=== PATIENT | male | born 1980 | race Hispanic/Latino ===

== ENCOUNTER 2019-12-31 09:55 | Emergency (ER) | payer SELFPAY ==
[2019-12-31 10:39] LABS: Absolute Lymphocytes (CBC) 1.5 K/uL (0.7-4.9); Basophils % 0.4 % (0-1.3); Hematocrit 46.8 % (39.6-49.0); Lymphocytes % 17.5 % (15.3-44.8); MPV 8.4 fL (7.6-11.3)
[2019-12-31] MEDS ORDERED: LORazepam 2 MG/ML VIAL ONE (10:39)
[2019-12-31] MEDS ORDERED: ASPIRIN 81 MG CHEWABLE TABLET ONE (10:39)
[2019-12-31 10:40] LABS: Protime INR 1.03
[2019-12-31 10:57] LABS: ALT/SGPT 20 U/L (12-78); AST/SGOT 25 U/L (15-37); Albumin 4.1 g/dL (3.4-5.0); Alkaline Phosphatase 62 U/L (45-117); BUN Blood Urea Nitrogen 11 mg/dL (7-18); Bicarbonate 25 mmol/L (21-32); Bilirubin Direct 0.1 mg/dL (0-0.2); Bilirubin Total 0.7 mg/dL (0.2-1.0); Glucose Level 125 mg/dL (74-106); Magnesium 2.1 mg/dL (1.8-2.4); NT PRO-BNP 121 pg/mL (<125); Potassium 3.2 mmol/L (3.5-5.1); Protein, Total 7.6 g/dL (6.4-8.2); Sodium Level 139 mmol/L (136-145); Troponin (Emerg Dept Use Only) < 0.02 ng/mL (0.0-0.045)
--- NOTE | 2019-12-31 13:02 | RAD REPORT ---
EXAM DESCRIPTION: RAD - Chest Single View - 12/31/2019 10:35 am CLINICAL HISTORY: CHEST PAIN Chest pain. COMPARISON: Chest Single View dated 01/14/2017; CHEST SINGLE VIEW dated 12/14/2014; CHEST SINGLE VIEW dated 11/30/2014; CHEST SINGLE VIEW dated 04/24/2014 FINDINGS: Portable technique limits examination quality. The lungs are grossly clear. The heart is normal in size. No displaced fractures. IMPRESSION: No acute intrathoracic process suspected.
--- NOTE | 2019-12-31 14:07 | EDPHYS ---
Physician Documentation [facility] Name: Evaristo Altman Age: 39 yrs Sex: Male : 1980 Arrival Date: 12/31/2019 Time: 09:57 Bed 2 Private MD: ED Physician Nicolas Bowman HPI: 12/30 10:27 This 39 yrs old Male presents to ER via Ambulatory with complaints of Drug la1 Abuse. 10:27 This 39 yrs old Male presents to ER via Ambulatory with complaints of chest la1 pain. 10:27 The patient or guardian reports chest pain that is located primarily in the substernal la1 area. The pain does not radiate. Associated signs and symptoms: Pertinent positives: lightheadedness. The chest pain is described as throbbing. Duration: The patient or guardian reports a single episode, that is still ongoing, and unchanged. Modifying factors: The symptoms are alleviated by deep breath. the symptoms are aggravated by nothing. Severity of pain: At its worst the pain was moderate. The patient has experienced a previous episode, many years ago. pt reports he has been clean for four years but last night took meth and oxycodone at about 1800, began having chest pain at about 0900 this morning. States he has had pain like this in the past when he did meth and his BP was high. . Historical: - Allergies: 10:16 No Known Allergies; aa5 - PMHx: 10:16 Depression; Hypertension; PTSD; aa5 - PSHx: 10:16 None; aa5 - Social history:: Smoking status: Patient reports the use of cigarette tobacco products, 4-5 cigarettes day . ROS: 10:40 Constitutional: Negative for fever, chills, and weight loss, Eyes: Negative for injury, la1 pain, redness, and discharge, ENT: Negative for injury, pain, and discharge, Neck: Negative for injury, pain, and swelling. 10:40 Respiratory: Negative for shortness of breath, cough, wheezing, and pleuritic chest pain, Abdomen/GI: Negative for abdominal pain, nausea, vomiting, diarrhea, and constipation, Back: Negative for injury and pain, MS/Extremity: Negative for injury and deformity, Skin: Negative for injury, rash, and discoloration, Neuro: Negative for headache, weakness, numbness, tingling, and seizure. 10:40 Cardiovascular: Positive for chest pain. Exam: 10:40 Constitutional: This is a well developed, well nourished patient who is awake, alert, la1 and in no acute distress. Head/Face: Normocephalic, atraumatic. Neck: Trachea midline, Supple, full range of motion without nuchal rigidity, or vertebral point tenderness. No Meningismus. Chest/axilla: Normal chest wall appearance and motion. Nontender with no deformity. No lesions are appreciated. Cardiovascular: Regular rate and rhythm with a normal S1 and S2. No gallops, murmurs, or rubs. Normal PMI, no JVD. No pulse deficits. Respiratory: Lungs have equal breath sounds bilaterally, clear to auscultation Abdomen/GI: Soft, non-tender, with normal bowel sounds. No distension No guarding or rebound. No evidence of tenderness throughout. Back: No spinal tenderness. No costovertebral tenderness. Full range of motion. Skin: Warm, dry with normal turgor. Normal color with no rashes, no lesions, and no evidence of cellulitis. MS/ Extremity: Pulses equal, no cyanosis. Neurovascular intact. Full, normal range of motion. 10:50 ECG was reviewed by the Attending Physician. la1 Vital Signs: 10:06 BP 143 / 111; Pulse 101; Resp 18 S; Temp 98.0(O); Pulse Ox 99% on R/A; Weight 104.33 kg aa5 (R); Height 5 ft. 8 in. (172.72 cm) (R); Pain 5/10; 10:36 BP 143 / 94; Pulse 104; Resp 18; Pulse Ox 100% on R/A; Pain 5/10; em 11:04 BP 137 / 85; Pulse 87; Resp 18; Pulse Ox 99% on R/A; Pain 4/10; em 12:29 BP 142 / 98; Pulse 101; Resp 16; Pulse Ox 96% on R/A; em 13:31 BP 134 / 88; Pulse 95; Resp 18; Pulse Ox 99% on R/A; Pain 3/10; em 10:06 Body Mass Index 34.97 (104.33 kg, 172.72 cm) aa5 MDM: 10:19 Patient medically screened. la1 14:03 Differential diagnosis: abnormal EKG, acute myocardial infarction, anxiety, chest wall la1 pain, costochondritis, esophagitis, pleurisy, pneumonia, pulmonary embolus, thoracic aortic disection, unstable angina. HEART Score: History: Slightly Suspicious (0), ECG: Non specific repolarization disturbance / LBTB / PM (1), Age: < or = 45 years (0), Risk Factors: 1 or 2 risk factors (1), Troponin: < or = 1 x Normal Limit (0), Total Score = 2. Data reviewed: vital signs, nurses notes, lab test result(s), EKG, radiologic studies, I have discussed the patient's presentation/case with the attending Emergency Department Physician; and as a result, I will discharge patient. Data interpreted: Pulse oximetry: on room air is 99 %. Interpretation: normal. Test interpretation: by ED physician or midlevel provider: ECG, plain radiologic studies. Counseling: I had a detailed discussion with the patient and/or guardian regarding: the historical points, exam findings, and any diagnostic results supporting the discharge/admit diagnosis, the presence of at least one elevated blood pressure reading (>120/80) during this emergency department visit, lab results, the need for outpatient follow up, a family practitioner, to return to the emergency department if symptoms worsen or persist or if there are any questions or concerns that arise at home, smoking cessation. Special discussion: Based on the patient's history, exam, and Dx evaluation, there is no indication for emergent intervention or inpatient Tx. It is understood by the patient/guardian that if the Sx's persist or worsen they need to return immediately for re-evaluation. Based on the history and exam findings, there is no indication for further emergent testing or inpatient evaluation. I discussed with the patient/guardian the need to see the director of special services for further evaluation of the symptoms. I discussed with the patient/guardian the need to see the primary care provider for further evaluation of the symptoms. ED course: pt feeling much better after the ativan, BP back down, I do not believe this is ACS. Will have pt FU with cardiology and PCP, strict return precautions given. 12/30 10:19 Order name: Basic Metabolic Panel; Complete Time: 10:59 la1 12/30 10:19 Order name: CBC with Diff; Complete Time: 10:46 la1 12/30 10:19 Order name: LFT's; Complete Time: 10:59 la1 08 10:19 Order name: Magnesium; Complete Time: 10:59 12/30 10:19 Order name: NT PRO-BNP; Complete Time: :59 12/30 10:19 Order name: PT-INR; Complete Time: :59 12/30 10:19 Order name: Troponin (emerg Dept Use Only); Complete Time: :59 12/30 10:19 Order name: XRAY Chest (1 view); Complete Time: 13:05 12/30 10:19 Order name: EKG; Complete Time: 10:21 12/30 10:19 Order name: Cardiac monitoring; Complete Time: 10:24 12/30 10:19 Order name: EKG - Nurse/Tech; Complete Time: 10:24 12/30 13:12 Order name: Troponin (emerg Dept Use Only); Complete Time: 13:54 em 12/30 10:19 Order name: IV Saline Lock; Complete Time: 10:24 12/30 10:19 Order name: Labs collected and sent; Complete Time: 10:24 12/30 10:19 Order name: O2 Per Protocol; Complete Time: 10:24 12/30 10:19 Order name: O2 Sat Monitoring; Complete Time: 10:24 12/30 12:30 Order name: Misc. Order: repeat trop and ekg at 1330 pls; Complete Time: 13:30 12/30 13:12 Order name: EKG - Nurse/Tech; Complete Time: 13:30 em EC:50 Rate is 102 beats/min. Rhythm is regular, Sinus tachycardia. Left axis deviation noted. la1 QRS is negative in lead aVF. RI interval is normal at 144 msec. QRS interval is normal at 86 msec. QT interval is prolonged at 466 msec. No Q waves. T waves are Inverted in lead aVR. No ST changes noted. Clinical impression: Sinus tachycardia. Interpreted by me. Reviewed by me. Administered Medications: 10:36 Drug: Ativan 1 mg Route: IVP; Site: right antecubital; em 11:05 Follow up: Response: No adverse reaction; Marked relief of symptoms em 10:36 Drug: Aspirin Chewable Tablet 324 mg Route: PO; em 11:05 Follow up: Response: No adverse reaction em Disposition: 16:20 Co-signature as Attending Physician, Nicolas Bowman MD. rn Disposition: 12/31/19 14:06 Discharged to Home. Impression: Chest pain, unspecified, Adverse effect of amphetamines. - Condition is Stable. - Discharge Instructions: Nonspecific Chest Pain, Aspirin and Your Heart. - Medication Reconciliation Form, Thank You Letter form. - Follow up: Private Physician; When: 2 - 3 days; Reason: Recheck today's complaints, Re-evaluation by your physician. - Problem is new. - Symptoms have improved. Signatures: Dispatcher [employer] EDME Hua Marie, RN RN Nicloas Springer MD MD rn Calderon, Audri RN RN aa5 Wilfrid Das, KHADIJAH-C PRINCIPAL SYSTEMS ARCHITECT-Cla1 Corrections: (The following items were deleted from the chart) 14:55 14:06 12/31/2019 14:06 Discharged to Home. Impression: Chest pain, unspecified; Adverse em effect of amphetamines. Condition is Stable. Forms are Medication Reconciliation Form, Thank You Letter, Antibiotic Education, Prescription Opioid Use. Follow up: Private Physician; When: 2 - 3 days; Reason: Recheck today's complaints, Re-evaluation by your physician. Problem is new. Symptoms have improved. la1
--- NOTE | 2019-12-31 14:07 | ER ---
Nurse's Notes [facility] Name: Evaristo Altman Age: 39 yrs Sex: Male : 1980 Arrival Date: 12/31/2019 Time: 09:57 Bed 2 Private MD: Diagnosis: Chest pain, unspecified;Adverse effect of amphetamines Presentation: 12/30 10:06 Chief complaint: Patient states: "I am a drug addict and I've been clean for 4 years aa5 but last night I relapsed and did meth and oxycodone". Pt states "I also drank some last night". Pt reports chest pain that began today and reports SOB. Denies nausea/vomiting. 10:06 Acuity: SHA 3 aa5 10:06 Coronavirus screen: The patient has NOT traveled to a country currently being monitored aa5 by the [facility] within the last 14 days. Ebola Screen: Patient negative for fever greater than or equal to 101.5 degrees Fahrenheit, and additional compatible Ebola Virus Disease symptoms. 10:06 Method Of Arrival: Ambulatory aa5 10:06 Initial Sepsis Screen: Does the patient meet any 2 criteria? HR > 90 bpm. Does the aa5 patient have a suspected source of infection? No. Patient's initial sepsis screen is negative. Risk Assessment: Do you want to hurt yourself or someone else? Patient reports no desire to harm self or others. Historical: - Allergies: 10:16 No Known Allergies; aa5 - PMHx: 10:16 Depression; Hypertension; PTSD; aa5 - PSHx: 10:16 None; aa5 - Social history:: Smoking status: Patient reports the use of cigarette tobacco products, 4-5 cigarettes day . Screenin:15 Abuse screen: Denies threats or abuse. Nutritional screening: No deficits noted. em Tuberculosis screening: No symptoms or risk factors identified. Fall Risk None identified. Assessment: 10:15 General: Appears in no apparent distress. uncomfortable, Behavior is calm, cooperative. em Pain: Complains of pain in anterior aspect of left upper chest Pain does not radiate. Pain currently is 5 out of 10 on a pain scale. Quality of pain is described as pressure, Pain began 2 hours ago. Neuro: Level of Consciousness is awake, alert, obeys commands, Oriented to person, place, time, situation, Appropriate for age. Cardiovascular: Reports chest pain, shortness of breath, Denies nausea, vomiting, Heart tones S1 S2 present Capillary refill < 3 seconds Patient's skin is warm and dry. Rhythm is sinus tachycardia. Respiratory: Airway is patent Respiratory effort is even, unlabored, Respiratory pattern is regular, symmetrical. GI: Abdomen is flat, Bowel sounds present X 4 quads. Abd is soft and non tender X 4 quads. Derm: Skin is intact, is healthy with good turgor, Skin is pink, warm \\T\\ dry. Musculoskeletal: Capillary refill < 3 seconds, Range of motion: intact in all extremities. 11:07 Reassessment: Patient appears in no apparent distress at this time. Patient and/or em family updated on plan of care and expected duration. Pain level reassessed. Patient is alert, oriented x 3, equal unlabored respirations, skin warm/dry/pink. rates pain 4/10 Patient states feeling better. Patient states symptoms have improved. 12:30 Reassessment: Patient appears in no apparent distress at this time. Patient and/or em family updated on plan of care and expected duration. Pain level reassessed. Patient is alert, oriented x 3, equal unlabored respirations, skin warm/dry/pink. pending to repeat EKG and cardiac enzymes at 1330. 13:31 Reassessment: Patient appears in no apparent distress at this time. Patient and/or em family updated on plan of care and expected duration. Pain level reassessed. Patient is alert, oriented x 3, equal unlabored respirations, skin warm/dry/pink. sent repeat trop. Vital Signs: 10:06 BP 143 / 111; Pulse 101; Resp 18 S; Temp 98.0(O); Pulse Ox 99% on R/A; Weight 104.33 kg aa5 (R); Height 5 ft. 8 in. (172.72 cm) (R); Pain 5/10; 10:36 BP 143 / 94; Pulse 104; Resp 18; Pulse Ox 100% on R/A; Pain 5/10; em 11:04 BP 137 / 85; Pulse 87; Resp 18; Pulse Ox 99% on R/A; Pain 4/10; em 12:29 BP 142 / 98; Pulse 101; Resp 16; Pulse Ox 96% on R/A; em 13:31 BP 134 / 88; Pulse 95; Resp 18; Pulse Ox 99% on R/A; Pain 3/10; em 10:06 Body Mass Index 34.97 (104.33 kg, 172.72 cm) aa5 ED Course: 09:57 Patient arrived in ED. ag5 09:57 Arm band placed on. aa5 10:06 Wilfrid Das [facility]C [facility] la1 10:06 Nicolas Bowman MD is Attending Physician. la1 10:09 EKG done, by ED staff, reviewed by Wilfrid CELESTIN. em 10:10 Hua Marie, RN is Primary Nurse. em 10:15 Triage completed. aa5 10:15 Patient has correct armband on for positive identification. Bed in low position. Call em light in reach. Adult w/ patient. security monitor on. Pulse ox on. NIBP on. 10:23 Initial lab(s) drawn, by me, sent to lab. Inserted saline lock: 20 gauge in right em antecubital area, using aseptic technique. Blood collected. 10:32 XRAY Chest (1 view) In Process Unspecified. EDMS 14:45 No provider procedures requiring assistance completed. IV discontinued, intact, em bleeding controlled, No redness/swelling at site. Pressure dressing applied. Administered Medications: 10:36 Drug: Ativan 1 mg Route: IVP; Site: right antecubital; em 11:05 Follow up: Response: No adverse reaction; Marked relief of symptoms em 10:36 Drug: Aspirin Chewable Tablet 324 mg Route: PO; em 11:05 Follow up: Response: No adverse reaction em Outcome: 14:06 Discharge ordered by . [facility] 14:54 Discharged to home ambulatory. em 14:54 Condition: good 14:54 Discharge instructions given to patient, Instructed on discharge instructions, follow up and referral plans. Demonstrated understanding of instructions, follow-up care. 14:55 Patient left the ED. em Signatures: Dispatcher [employer] EDMO Hua Marie, LUANA CRAFT em Radha Ayoub RN RN aa5 Wilfrid Das FNP-C FNP-[facility] AnuelVeronica ag5
[2019-12-31 15:00] VITALS: TEMP 98
[2019-12-31 15:06] VITALS: BP 134/88; O2SAT 99
--- NOTE | 2020-01-01 07:30 | EKG ---
Test Date: 2019-12-31 Test Time: 09:19:15 Dry Mop Maker: PARESH MEASUREMENT RESULTS: Intervals: Rate: 102 VA: 144 QRSD: 86 QT: 358 QTc: 466 [place]: P: 49 VA: 144 QRS: -30 T: 51 INTERPRETIVE STATEMENTS: Sinus tachycardia Left axis deviation Abnormal ECG Compared to ECG 01/14/2017 21:12:22 Left-axis deviation now present Sinus rhythm no longer present Electronically Signed On 01-01-20 07:30:04 CDT by Yamil Weeks
--- NOTE | 2020-01-02 08:55 | EKG ---
Test Date: 2019-12-31 Test Time: 12:29:11 Search Advertising Strategist: PARESH MEASUREMENT RESULTS: Intervals: Rate: 95 MA: 148 QRSD: 92 QT: 362 QTc: 454 [place]: P: 47 MA: 148 QRS: -30 T: 49 INTERPRETIVE STATEMENTS: Normal sinus rhythm Left axis deviation Abnormal ECG Compared to ECG 12/31/2019 09:19:15 Sinus tachycardia no longer present Electronically Signed On 01-02-20 08:53:14 CDT by Max Hough
== END 2019-12-31 14:55 | disposition home or self-care (01) ==
LOC: ER 09:55
DX: R07.9 Chest pain, unspecified (principal); T43.625A Adverse effect of amphetamines, initial encounter; I10 Essential (primary) hypertension; F17.210 Nicotine dependence, cigarettes, uncomplicated
CPT/HCPCS: 36415; 71045; 80048; 80076; 83735; 83880; 84484; 85025; 85610; 93005; 96374; 99284

== ENCOUNTER 2020-04-30 13:56 | Emergency (ER) | payer SELFPAY ==
[2020-04-30 14:59] LABS: Absolute Lymphocytes (CBC) 1.5 K/uL (0.7-4.9); Basophils % 0.2 % (0-1.3); Hematocrit 42.1 % (39.6-49.0); Lymphocytes % 7.8 % (15.3-44.8); MPV 8.6 fL (7.6-11.3); RBC Red Blood Cell Count 4.34 M/uL (4.33-5.43)
[2020-04-30 15:21] LABS: ALT/SGPT 16 U/L (12-78); AST/SGOT 17 U/L (15-37); Albumin 4.3 g/dL (3.4-5.0); Alkaline Phosphatase 50 U/L (45-117); BUN Blood Urea Nitrogen 10 mg/dL (7-18); Bicarbonate 26 mmol/L (21-32); Bilirubin Direct 0.2 mg/dL (0-0.2); Bilirubin Total 0.7 mg/dL (0.2-1.0); Glucose Level 106 mg/dL (74-106); Magnesium 1.6 mg/dL (1.8-2.4); NT PRO-BNP 103 pg/mL (<125); Potassium 3.4 mmol/L (3.5-5.1); Sodium Level 141 mmol/L (136-145); Troponin (Emerg Dept Use Only) < 0.02 ng/mL (0.0-0.045)
[2020-04-30 15:22] LABS: Protime INR 1.03
[2020-04-30] MEDS ORDERED: NA CHLORIDE 0.9% 1,000 ML ONE (15:43)
[2020-04-30 16:24] LABS: Urine Bacteria <20 /HPF (NONE SEEN); Urine Culture Reflex Order NOT NEEDED; Urine RBC <5 /HPF (NONE SEEN)
[2020-04-30] MEDS ORDERED: POTASSIUM CL SA 10 MEQ TAB PO ONE (16:57)
[2020-04-30] MEDS ORDERED: Ringers Lactate 1,000 ML IV ONE (16:57)
[2020-04-30] MEDS ORDERED: Magnesium Sulfate 2gm IVPB 2 G/50 ML BAG IV ONE (16:57)
--- NOTE | 2020-04-30 18:14 | EDPHYS ---
Physician Documentation [facility] Name: Evaristo Altman Age: 39 yrs Sex: Male : 1980 Arrival Date: 04/30/2020 Time: 14:02 Bed 18 Private MD: ED Physician Chaz Baxter HPI: 04/30 15:48 This 39 yrs old Male presents to ER via EMS with complaints of Dehydration. jr8 15:48 Patient stated that he had been outside working all day. Stated to sweat profusely but jr8 then stopped sweating. Stated that he became dizzy and had near syncopal episode. EMS called at that time. Also stated that he was having hand cramping . Onset: The symptoms/episode began/occurred acutely, today. Severity of symptoms: At their worst the symptoms were moderate in the emergency department the symptoms are unchanged. The patient has not experienced similar symptoms in the past. The patient has not recently seen a physician. Historical: - Allergies: 14:03 No Known Allergies; rb1 - Home Meds: 14:03 None [Active]; rb1 - PMHx: 14:03 Depression; Hypertension; PTSD; rb1 - PSHx: 14:03 None; rb1 - Social history:: Smoking status: Patient/guardian denies using. ROS: 15:48 Eyes: Negative for injury, pain, redness, and discharge, ENT: Negative for injury, jr8 pain, and discharge, Neck: Negative for injury, pain, and swelling, Cardiovascular: Negative for chest pain, palpitations, and edema, Respiratory: Negative for shortness of breath, cough, wheezing, and pleuritic chest pain, Abdomen/GI: Negative for abdominal pain, nausea, vomiting, diarrhea, and constipation, MS/Extremity: Negative for injury and deformity, Skin: Negative for injury, rash, and discoloration. 15:48 Back: Positive for flank pain, on the left. 15:48 Neuro: Positive for dizziness, near syncope. Exam: 15:48 Eyes: Pupils equal round and reactive to light, extra-ocular motions intact. Lids and jr8 lashes normal. Conjunctiva and sclera are non-icteric and not injected. Cornea within normal limits. Periorbital areas with no swelling, redness, or edema. ENT: Nares patent. No nasal discharge, no septal abnormalities noted. Tympanic membranes are normal and external auditory canals are clear. Oropharynx with no redness, swelling, or masses, exudates, or evidence of obstruction, uvula midline. Mucous membranes moist. Neck: Trachea midline, no thyromegaly or masses palpated, and no cervical lymphadenopathy. Supple, full range of motion without nuchal rigidity, or vertebral point tenderness. No Meningismus. Respiratory: Lungs have equal breath sounds bilaterally, clear to auscultation and percussion. No rales, rhonchi or wheezes noted. No increased work of breathing, no retractions or nasal flaring. Abdomen/GI: Soft, non-tender, with normal bowel sounds. No distension or tympany. No guarding or rebound. No evidence of tenderness throughout. Skin: Warm, dry with normal turgor. Normal color with no rashes, no lesions, and no evidence of cellulitis. MS/ Extremity: Pulses equal, no cyanosis. Neurovascular intact. Full, normal range of motion. Neuro: Awake and alert, GCS 15, oriented to person, place, time, and situation. Cranial nerves II-XII grossly intact. Motor strength 5/5 in all extremities. Sensory grossly intact. Cerebellar exam normal. Normal gait. 15:48 Cardiovascular: Rate: tachycardic, Rhythm: regular, Pulses: Pulses are 2+ in right radial artery and left radial artery. Heart sounds: normal, normal S1and S2, no S3 or S4, no murmur, no rub, no gallop, Edema: is not appreciated, JVD: is not appreciated. 15:48 Back: pain, that is mild, of the left flank, ROM is normal, normal spinal alignment noted, CVA tenderness, that is mild, is noted on the left. Vital Signs: 14:03 BP 136 / 90; Pulse 112; Resp 13; Pulse Ox 99% ; Weight 104.33 kg; Height 5 ft. 9 in. rb1 (175.26 cm); Pain 5/10; 15:00 BP 122 / 67; Pulse 101; Resp 13; Pulse Ox 100% on R/A; rb1 16:00 BP 154 / 92; Pulse 96; Resp 16; Pulse Ox 100% on R/A; rb1 16:59 BP 131 / 77; Pulse 92; Resp 17; Pulse Ox 99% ; rb1 18:00 BP 135 / 87; Pulse 90; Resp 18; Pulse Ox 99% on R/A; rb1 18:50 BP 133 / 79; Pulse 96; Resp 17; Pulse Ox 99% on R/A; rb1 14:03 Body Mass Index 33.96 (104.33 kg, 175.26 cm) rb1 MDM: 15:08 Patient medically screened. rust 18:12 Data reviewed: vital signs, nurses notes, lab test result(s), EKG, and as a result, I 8 will discharge patient. Data interpreted: Pulse oximetry: on room air is 99 %. Interpretation: normal. Counseling: I had a detailed discussion with the patient and/or guardian regarding: the historical points, exam findings, and any diagnostic results supporting the discharge/admit diagnosis, lab results, the need for outpatient follow up, a family practitioner, to return to the emergency department if symptoms worsen or persist or if there are any questions or concerns that arise at home. Response to treatment: the patient's symptoms have markedly improved after treatment, patient is well hydrated. 04/30 14:36 Order name: Basic Metabolic Panel; Complete Time: 15:52 [facility] 04/30 14:36 Order name: CBC with Diff; Complete Time: 15:09 [facility] 04/30 14:36 Order name: LFT's; Complete Time: 15:52 [facility] 04/30 14:36 Order name: Magnesium; Complete Time: 15:52 [facility] 04/30 14:36 Order name: NT PRO-BNP; Complete Time: 15:52 [facility] 04/30 14:36 Order name: PT-INR; Complete Time: 15:52 [facility] 04/30 14:36 Order name: Troponin (emerg Dept Use Only); Complete Time: 15:52 [facility] 04/30 14:36 Order name: XRAY Chest (1 view) [facility] 04/30 15:09 Order name: CK; Complete Time: 16:13 rust 04/30 15:54 Order name: CT Stone Protocol rust 04/30 15:55 Order name: Urine Microscopic Only; Complete Time: 16:28 rust 04/30 16:18 Order name: Urine Dipstick--Ancillary (enter results) [facility] 04/30 14:36 Order name: EKG; Complete Time: 14:38 [facility] 04/30 14:36 Order name: Cardiac monitoring; Complete Time: 14:36 [facility] 04/30 14:36 Order name: EKG - Nurse/Tech; Complete Time: 17:46 [facility] 04/30 14:36 Order name: IV Saline Lock; Complete Time: 14:36 [facility] 04/30 14:36 Order name: Labs collected and sent; Complete Time: 14:36 [facility] 04/30 14:36 Order name: O2 Per Protocol; Complete Time: 14:36 [facility] 04/30 14:36 Order name: O2 Sat Monitoring; Complete Time: 14:36 [facility] 04/30 15:55 Order name: Urine Dipstick-Ancillary (obtain specimen); Complete Time: 16:14 jr8 Administered Medications: 15:40 Drug: NS 0.9% 1000 ml Route: IV; Rate: 1000 ml; Site: left antecubital; rb1 16:55 Follow up: IV Status: Completed infusion rb1 16:55 Drug: Magnesium Sulfate 2 grams Route: IVPB; Infused Over: 2 hrs; Site: left rb1 antecubital; 16:55 Drug: Potassium Chloride 20 mEq Route: PO; rb1 17:45 Follow up: Response: No adverse reaction rb1 16:55 Drug: Ringers - Lactated Ringers Solution 1000 ml Route: IV; Rate: bolus; Site: left rb1 antecubital; 18:13 Follow up: IV Status: Completed infusion rb1 Disposition: 04/30/20 18:14 Discharged to Home. Impression: Dehydration, Heat exhaustion, unspecified. - Condition is Stable. - Discharge Instructions: Dehydration, Adult, Heat Exhaustion Information. - Medication Reconciliation Form, Thank You Letter, Antibiotic Education, Prescription Opioid Use form. - Follow up: Private Physician; When: 2 - 3 days; Reason: Recheck today's complaints, Continuance of care, Re-evaluation by your physician. - Problem is new. - Symptoms have improved. Signatures: Dispatcher [employer] EDMS Neville Garber PA PA jr8 Stefanie Jang, RN RN rb1 Radu Gonzalez, RN RN rv Asia Perla RN RN ls4 Corrections: (The following items were deleted from the chart) 19:06 18:14 04/30/2020 18:14 Discharged to Home. Impression: Dehydration; Heat exhaustion, rv unspecified. Condition is Stable. Forms are Medication Reconciliation Form, Thank You Letter, Antibiotic Education, Prescription Opioid Use. Follow up: Private Physician; When: 2 - 3 days; Reason: Recheck today's complaints, Continuance of care, Re-evaluation by your physician. Problem is new. Symptoms have improved. jr8
--- NOTE | 2020-04-30 18:14 | ER ---
Nurse's Notes [facility] Name: Evaristo Altman Age: 39 yrs Sex: Male : 1980 Arrival Date: 04/30/2020 Time: 14:02 Bed 18 Private MD: Diagnosis: Dehydration;Heat exhaustion, unspecified Presentation: 04/30 14:03 Chief complaint: EMS states: PT. 30 yr old male, A \T\ O x 4, was working outside and rb1 started sweating profusely and then stopped sweating around 1330. C/o left kidney pain 5/10, pain with urination x 1 week. A febrile, HR 130's-140's, BS 153, BP 147/80. 18 G L AC, NS 1000 ml bolus infusing, administered by EMS. Coronavirus screen: Proceed with normal triage. Ebola Screen: Patient denies exposure to infectious person. Initial Sepsis Screen: Does the patient meet any 2 criteria? No. Patient's initial sepsis screen is negative. Does the patient have a suspected source of infection? No. Patient's initial sepsis screen is negative. Risk Assessment: Do you want to hurt yourself or someone else? Patient reports no desire to harm self or others. Onset of symptoms was April 30, 2020 at 13:30. 14:03 Method Of Arrival: EMS: [facility] rb1 14:03 Acuity: SHA 3 rb1 Triage Assessment: 14:03 General: Appears in no apparent distress. comfortable, Behavior is calm, cooperative, rb1 Denies fever. Pain: Complains of pain in left kidney Pain currently is 5 out of 10 on a pain scale. Pain began x 1 week. Neuro: Level of Consciousness is awake, alert, obeys commands, Oriented to person, place, time, situation. Cardiovascular: Capillary refill < 3 seconds. Cardiovascular: Rhythm is sinus tachycardia. Respiratory: Airway is patent Respiratory effort is even, unlabored, Respiratory pattern is regular, symmetrical. GI: No signs and/or symptoms were reported involving the gastrointestinal system. : Reports pain in left flank(s), with urination. Derm: Skin is pink, warm \T\ dry. Historical: - Allergies: 14:03 No Known Allergies; rb1 - Home Meds: 14:03 None [Active]; rb1 - PMHx: 14:03 Depression; Hypertension; PTSD; rb1 - PSHx: 14:03 None; rb1 - Social history:: Smoking status: Patient/guardian denies using. Screenin:03 Abuse screen: Denies threats or abuse. Nutritional screening: No deficits noted. rb1 Tuberculosis screening: No symptoms or risk factors identified. Fall Risk None identified. Assessment: 14:03 General: See triage assessment. rb1 15:00 Reassessment: Patient appears in no apparent distress at this time. Patient and/or rb1 family updated on plan of care and expected duration. Pain level reassessed. Patient is alert, oriented x 3, equal unlabored respirations, skin warm/dry/pink. 16:00 Reassessment: Patient appears in no apparent distress at this time. Patient states rb1 feeling better. 16:59 Reassessment: Patient appears in no apparent distress at this time. Patient and/or rb1 family updated on plan of care and expected duration. Pain level reassessed. Patient is alert, oriented x 3, equal unlabored respirations, skin warm/dry/pink. 18:00 Reassessment: Patient appears in no apparent distress at this time. No changes from rb1 previously documented assessment. Pt. is on his telephone. 18:50 Reassessment: Discharge pending due to provider needing to give the pt. test results. rb1 Vital Signs: 14:03 BP 136 / 90; Pulse 112; Resp 13; Pulse Ox 99% ; Weight 104.33 kg; Height 5 ft. 9 in. rb1 (175.26 cm); Pain 5/10; 15:00 BP 122 / 67; Pulse 101; Resp 13; Pulse Ox 100% on R/A; rb1 16:00 BP 154 / 92; Pulse 96; Resp 16; Pulse Ox 100% on R/A; rb1 16:59 BP 131 / 77; Pulse 92; Resp 17; Pulse Ox 99% ; rb1 18:00 BP 135 / 87; Pulse 90; Resp 18; Pulse Ox 99% on R/A; rb1 18:50 BP 133 / 79; Pulse 96; Resp 17; Pulse Ox 99% on R/A; rb1 14:03 Body Mass Index 33.96 (104.33 kg, 175.26 cm) rb1 ED Course: 14:02 Patient arrived in ED. rb1 14:03 Arm band placed on right wrist. rb1 14:03 Patient has correct armband on for positive identification. Placed in gown. Bed in low rb1 position. Call light in reach. Side rails up X 1. [employer] cook on. Pulse ox on. NIBP on. 14:03 Maintain EMS IV. Dressing intact. Good blood return noted. Site clean \T\ dry. Gauge \T\ rb 1 site: 18 G L AC. 14:07 Triage completed. rb1 14:11 Stefanie Jang, RN is Primary Nurse. rb1 15:08 Neville Garber PA is PHCP. jr8 15:08 Chaz Baxter MD is Attending Physician. jr8 15:54 XRAY Chest (1 view) In Process Unspecified. EDMS 16:10 CT Stone Protocol In Process Unspecified. EDMS 19:06 No provider procedures requiring assistance completed. IV discontinued, intact, rb1 bleeding controlled, No redness/swelling at site. Pressure dressing applied. Administered Medications: 15:40 Drug: NS 0.9% 1000 ml Route: IV; Rate: 1000 ml; Site: left antecubital; rb1 16:55 Follow up: IV Status: Completed infusion rb1 16:55 Drug: Magnesium Sulfate 2 grams Route: IVPB; Infused Over: 2 hrs; Site: left rb1 antecubital; 16:55 Drug: Potassium Chloride 20 mEq Route: PO; rb1 17:45 Follow up: Response: No adverse reaction rb1 16:55 Drug: Ringers - Lactated Ringers Solution 1000 ml Route: IV; Rate: bolus; Site: left rb1 antecubital; 18:13 Follow up: IV Status: Completed infusion rb1 Output: 18:12 Urine: 625ml (Voided); Total: 625ml. rb1 Outcome: 18:14 Discharge ordered by . jr8 19:06 Patient left the ED. rv 19:06 Discharged to home ambulatory. rb1 19:06 Condition: stable 19:06 Discharge instructions given to patient, Instructed on discharge instructions, follow up and referral plans. Demonstrated understanding of instructions, follow-up care. Signatures: Dispatcher [employer] EDCO Neville Garber PA PA jr8 Stefanie Jang, RN RN rb1 Radu Gonzalez RN RN rv
[2020-04-30 19:27] LABS: Urine Blood TRACE (NEG); Urine Glucose NEGATIVE (NEG); Urine Protein TRACE (NEG); Urine Specific Gravity 1.025 (1.005-1.030); Urine pH 5.5 (5.0-7.0)
[2020-04-30 19:43] VITALS: O2SAT 99
[2020-04-30 19:44] VITALS: BP 135/87
--- NOTE | 2020-04-30 21:59 | RAD REPORT ---
EXAM DESCRIPTION: [place] Single View04/30/2020 9:09 pm CLINICAL HISTORY: Shortness of breath COMPARISON: December 2019 FINDINGS: The lungs appear clear of acute infiltrate. The heart is normal size IMPRESSION: No acute abnormalities displayed
--- NOTE | 2020-05-01 07:19 | EKG ---
Test Date: 2020-04-30 Test Time: 17:08:24 Pecan Gatherer: PATTI MEASUREMENT RESULTS: Intervals: Rate: 86 [place]: 154 QRSD: 92 QT: 342 QTc: 409 [place]: P: 57 [place]: 154 QRS: -35 T: 47 INTERPRETIVE STATEMENTS: Normal sinus rhythm Left axis deviation Abnormal ECG Compared to ECG 12/31/2019 12:29:11 No significant changes Electronically Signed On 05-01-20 07:18:05 CDT by Max Hough
--- NOTE | 2020-05-01 14:23 | RAD REPORT ---
EXAM DESCRIPTION: CT - Stone Protocol - 04/30/2020 9:09 pm CLINICAL HISTORY: Abdominal pain. COMPARISON: None. TECHNIQUE: Computed axial tomography of the abdomen pelvis was obtained without oral or IV contrast. Lack of IV and oral contrast limits evaluation of solid organs, bowel, and vessels. Coronal reformat marybeth images were obtained and reviewed. All CT scans are performed using dose optimization technique as appropriate and may include automated exposure control or mA/KV adjustment according to patient size. FINDINGS: A renal calculus is not seen. An ureteral calculus is not noted. A bladder calculus is not present. The liver, spleen, pancreas and adrenals appear grossly normal There is no evidence of diverticulitis. The appendix appears normal IMPRESSION: Negative for a genitourinary calculus
== END 2020-04-30 19:06 | disposition home or self-care (01) ==
LOC: ER 13:56
DX: E86.0 Dehydration (principal); X30.XXXA Exposure to excessive natural heat, initial encounter; Y93.89 Activity, other specified; Y92.89 Other specified places as the place of occurrence of the external cause; Y99.8 Other external cause status; I10 Essential (primary) hypertension
CPT/HCPCS: 36415; 71045; 74176; 76377; 80048; 80076; 81003; 81015; 82550; 83735; 83880; 84484; 85025; 85610; 93005; 96361; 96365; 96375; 99284; J3475; J7030; J7120

== ENCOUNTER 2020-12-21 14:52 | Emergency (ER) | payer SELFPAY ==
[2020-12-21 15:49] LABS: Absolute Lymphocytes (CBC) 2.3 K/uL (0.7-4.9); Basophils % 0.5 % (0-1.3); Hematocrit 45.2 % (39.6-49.0); MPV 8.6 fL (7.6-11.3)
[2020-12-21 15:50] LABS: Protime INR 0.94
[2020-12-21 16:12] LABS: ALT/SGPT 27 U/L (12-78); AST/SGOT 22 U/L (15-37); Albumin 4.8 g/dL (3.4-5.0); Alkaline Phosphatase 81 U/L (45-117); BUN Blood Urea Nitrogen 17 mg/dL (7-18); Bicarbonate 25 mmol/L (21-32); Bilirubin Direct 0.1 mg/dL (0-0.2); Bilirubin Total 0.5 mg/dL (0.2-1.0); Glucose Level 153 mg/dL (74-106); NT PRO-BNP 12 pg/mL (<125); Potassium 3.5 mmol/L (3.5-5.1); Protein, Total 8.1 g/dL (6.4-8.2); Sodium Level 138 mmol/L (136-145); Troponin (Emerg Dept Use Only) < 0.02 ng/mL (0.0-0.045)
--- NOTE | 2020-12-21 16:33 | RAD REPORT ---
EXAM DESCRIPTION: RAD - Chest Single View - 12/21/2020 4:13 pm CLINICAL HISTORY: CHEST PAIN Chest pain. COMPARISON: Extrem Venous W Compress Arvind dated 07/06/2017Chest Single View dated 04/30/2020; Chest Sing le View dated 12/31/2019; Chest Single View dated 01/14/2017; CHEST SINGLE VIEW dated 12/14/2014 FINDINGS: Portable technique limits examination quality. The lungs are grossly clear. The heart is normal in size. No displaced fractures. IMPRESSION: No acute intrathoracic process suspected.
[2020-12-21 18:11] LABS: Urine Blood 2+ (NEG); Urine Glucose NEGATIVE (NEG); Urine Protein NEGATIVE (NEG); Urine pH 5.5 (5.0-7.0)
--- NOTE | 2020-12-21 18:17 | EDPHYS ---
Physician Documentation [facility] Name: Evaristo Altman Age: 40 yrs Sex: Male : 1980 Arrival Date: 12/21/2020 Time: 14:54 Bed 8 Private MD: ED Physician Curtis Haque HPI: 12/21 15:05 This 40 yrs old Male presents to ER via Ambulatory with complaints of Chest cp Pain, High Blood Pressure. 15:05 The patient or guardian reports chest pain that is located primarily in the anterior cp chest wall, left. 15:05 Onset: today. The pain does not radiate. Associated signs and symptoms: Pertinent cp negatives: abdominal pain, cough, diaphoresis, dizziness, headache, lower extremity pain, lower extremity swelling, palpitations, shortness of breath, syncope. The chest pain is described as tightness. Duration: The patient or guardian reports a single episode, that is still ongoing, and unchanged. Patient reports noticing blood pressure today of 160s. Patient reports history of hypertension but not currently taking any medications. Took 1 tablet of lisinopril that belonged to his mom prior to arrival. Historical: - Allergies: 15:09 No Known Allergies; ph - PMHx: 15:09 Depression; Hypertension; PTSD; Anxiety; ph - PSHx: 15:09 None; ph - Immunization history:: Adult Immunizations unknown. - Social history:: Smoking status: Patient reports the use of cigarette tobacco products, denies chronic smoking, but will smoke occasionally, Patient uses alcohol, Patient/guardian denies using street drugs. ROS: 15:10 Constitutional: Negative for body aches, chills, fever, poor PO intake. cp 15:10 Eyes: Negative for injury, pain, redness, and discharge. cp 15:10 ENT: Negative for ear pain, sore throat, difficulty swallowing, difficulty handling secretions. 15:10 Cardiovascular: Positive for chest pain, Negative for edema, palpitations. 15:10 Respiratory: Negative for cough, shortness of breath, wheezing. 15:10 Abdomen/GI: Negative for abdominal pain, nausea, vomiting, and diarrhea. 15:10 Back: Negative for radiated pain. 15:10 Neuro: Negative for altered mental status, dizziness, headache, syncope, weakness. 15:10 All other systems are negative. Exam: 15:05 ECG was reviewed by the Attending Physician. cp 15:12 Constitutional: The patient appears in no acute distress, alert, awake, cp non-diaphoretic, non-toxic, well developed, well nourished. 15:12 Head/Face: Normocephalic, atraumatic. cp 15:12 Eyes: Periorbital structures: appear normal, Conjunctiva: normal, no exudate, no injection, Sclera: no appreciated abnormality, Lids and lashes: appear normal, bilaterally. 15:12 ENT: External ear(s): are unremarkable, Nose: is normal, Mouth: Lips: moist, Oral mucosa: moist, Posterior pharynx: Airway: no evidence of obstruction, patent. 15:12 Neck: ROM/movement: is normal, is supple, without pain, no range of motions limitations. 15:12 Chest/axilla: Inspection: normal, Palpation: is normal, no crepitus, no tenderness. 15:12 Cardiovascular: Rate: tachycardic, Rhythm: regular, Heart sounds: murmur, not appreciated, Edema: is not appreciated, JVD: is not appreciated. 15:12 Respiratory: the patient does not display signs of respiratory distress, Respirations: normal, no use of accessory muscles, no retractions, labored breathing, is not present, Breath sounds: are clear throughout, no decreased breath sounds, no stridor, no wheezing. 15:12 Abdomen/GI: Inspection: abdomen appears normal, Bowel sounds: active, all quadrants, Palpation: abdomen is soft and non-tender, in all quadrants. 15:12 Back: pain, is absent, ROM is normal. 15:12 Neuro: Orientation: to person, place \T\ time. Mentation: is normal, Cerebellar function: is grossly normal, Motor: moves all fours, strength is normal, Sensation: is normal. Vital Signs: 15:05 BP 143 / 97; Pulse 101; Resp 18; Temp 98.5; Pulse Ox 97% on R/A; Weight 104.33 kg; ph Height 5 ft. 8 in. (172.72 cm); 16:45 BP 129 / 88; Pulse 96; Resp 17; Pulse Ox 99% on R/A; hb 17:04 BP 122 / 87; Pulse 85; Resp 18; Pulse Ox 99% on R/A; ph 18:01 BP 126 / 95; Pulse 100; Resp 17; Pulse Ox 99% on R/A; hb 15:05 Body Mass Index 34.97 (104.33 kg, 172.72 cm) ph MDM: 14:56 Patient medically screened. cp 18:15 The patient was given aspirin in the Emergency Department. cp 18:15 Data reviewed: vital signs, lab test result(s), EKG, radiologic studies, plain films. cp Test interpretation: by ED physician or midlevel provider: ECG. Refusal of service: The patient/guardian displays adequate decision making capability and despite a detailed discussion of alternatives, benefits, risks, and consequences refuses: further testing: repeat troponin. 12/21 15:02 Order name: Basic Metabolic Panel 12/21 15:02 Order name: CBC with Diff; Complete Time: 16:18 12/21 16:18 Interpretation: Normal except: WBC 14.10; MCV 92.2; LOUIE% 76.2; NEUT A 10.8. 12/21 15:02 Order name: LFT's; Complete Time: 16:18 12/21 15:02 Order name: Magnesium; Complete Time: 16:18 12/21 15:02 Order name: NT PRO-BNP; Complete Time: 16:18 12/21 15:02 Order name: PT-INR; Complete Time: 16:18 12/21 15:02 Order name: Troponin (emerg Dept Use Only); Complete Time: 16:18 12/21 16:19 Interpretation: TROPED < 0.02; Reviewed. 12/21 15:02 Order name: XRAY Chest (1 view); Complete Time: 17:14 12/21 17:14 Interpretation: Report reviewed. 12/21 15:03 Order name: Basic Metabolic Panel; Complete Time: 16:18 [facility] 12/21 16:18 Interpretation: Normal except: GLUC 153. 12/21 15:04 Order name: UDS 12/21 15:04 Order name: Urine Drug Screen [facility] 12/21 18:07 Order name: Urine Dipstick--Ancillary (enter results) 12/21 14:56 Order name: EKG; Complete Time: 14:57 12/21 14:56 Order name: EKG - Nurse/Tech; Complete Time: 15:25 12/21 15:02 Order name: Cardiac monitoring; Complete Time: 15:24 cp 12/21 15:02 Order name: IV Saline Lock; Complete Time: 15:24 cp 12/21 15:02 Order name: Labs collected and sent; Complete Time: 15:24 cp 12/21 15:02 Order name: O2 Per Protocol; Complete Time: 15:24 cp 12/21 15:02 Order name: O2 Sat Monitoring; Complete Time: 15:24 cp 12/21 15:04 Order name: Urine Dipstick-Ancillary (obtain specimen); Complete Time: 18:02 cp EC:05 Rate is 110 beats/min. Rhythm is regular. OH interval is normal. QRS interval is cp normal. QT interval is normal. T waves are Inverted in lead aVR. Interpreted by me. Reviewed by me. Administered Medications: 15:30 Drug: Aspirin Chewable Tablet 324 mg Route: PO; ph 17:43 Follow up: Response: No adverse reaction ph 15:30 Drug: NS 0.9% 500 ml Route: IV; Rate: bolus; Site: right antecubital; ph 17:43 Follow up: Response: No adverse reaction; IV Status: Completed infusion; IV Intake: ph 500ml 17:44 Not Given (Pt denies chest pain, BP WNL): Nitroglycerin 0.4 mg Sublingual once ph Disposition: 12/21/20 18:17 Patient has left against medical advice. Impression: Chest pain, unspecified, Hypertensive heart disease. - Patients states they are going to Home. - Condition is Stable. - Discharge Instructions: Nonspecific Chest Pain, Hypertension, How to Take Your Blood Pressure, [id number], Aspirin and Your Heart, Managing Your Hypertension. Follow up: Private Physician; When: 1 - 2 days; Reason: Recheck today's complaints. - Problem is new. - Symptoms have improved. Addendum: 12/23/2020 06:11 Co-signature as Attending Physician, Curtis Haque MD I agree with the assessment and c grijalva plan of care. Signatures: Dispatcher [employer] Curtis Pérez MD MD cha Hall, Patricia RN RN ph Curtis Lebron PA PA cp Corrections: (The following items were deleted from the chart) 12/21 15:09 15:09 This 40 yrs old Male presents to ER via Ambulatory with complaints of cp Chest Pain, High Blood Pressure. cp 18:36 18:17 12/21/2020 18:17 Patients has left against medical advice. Impression: Chest ph pain, unspecified; Hypertensive heart disease. Patient states they are going to Home. Condition is Stable. Follow up: Private Physician; When: 1 - 2 days; Reason: Recheck today's complaints. Problem is new. Symptoms have improved. cp
--- NOTE | 2020-12-21 18:17 | ER ---
Nurse's Notes [facility] Name: Evaristo Altman Age: 40 yrs Sex: Male : 1980 Arrival Date: 12/21/2020 Time: 14:54 Bed 8 Private MD: Diagnosis: Chest pain, unspecified;Hypertensive heart disease Presentation: 12/21 15:05 Chief complaint: Patient states: L sided chest pressure, does not radiate, BP at home ph 160s systolic, took 1 of his mother's 30 mg lisinopril, reports hx of HTN and anxiety. Coronavirus screen: Client denies travel out of the [place] in the last 14 days. At this time, the client does not indicate any symptoms associated with coronavirus-19. Ebola Screen: No symptoms or risks identified at this time. Initial Sepsis Screen: Does the patient meet any 2 criteria? No. Patient's initial sepsis screen is negative. Does the patient have a suspected source of infection? No. Patient's initial sepsis screen is negative. Risk Assessment: Do you want to hurt yourself or someone else? Patient reports no desire to harm self or others. Onset of symptoms was December 21, 2020. 15:05 Method Of Arrival: Ambulatory ph 15:05 Acuity: SHA 3 ph Triage Assessment: 15:10 General: Appears in no apparent distress. comfortable, Behavior is calm, cooperative, ph appropriate for age, Denies fever, feeling ill. Pain: Complains of pain in anterior aspect of left upper chest Pain does not radiate. Quality of pain is described as pressure, squeezing. Neuro: Level of Consciousness is awake, alert, obeys commands, Oriented to person, place, time, situation. Cardiovascular: Reports chest pain, Denies fatigue, lightheadedness, nausea, shortness of breath, Capillary refill < 3 seconds in bilateral fingers Patient's skin is warm and dry. Rhythm is sinus tachycardia Chest pain quality is pressure, squeezing. Respiratory: Airway is patent Respiratory effort is even, unlabored, Respiratory pattern is regular, symmetrical. GI: No signs and/or symptoms were reported involving the gastrointestinal system. Derm: Skin is intact, is healthy with good turgor, Skin is pink, warm \T\ dry. Musculoskeletal: Circulation, motion, and sensation intact. Range of motion: intact in all extremities. Historical: - Allergies: 15:09 No Known Allergies; ph - PMHx: 15:09 Depression; Hypertension; PTSD; Anxiety; ph - PSHx: 15:09 None; ph - Immunization history:: Adult Immunizations unknown. - Social history:: Smoking status: Patient reports the use of cigarette tobacco products, denies chronic smoking, but will smoke occasionally, Patient uses alcohol, Patient/guardian denies using street drugs. Screenin:09 Abuse screen: Denies threats or abuse. Denies injuries from another. Nutritional ph screening: No deficits noted. Tuberculosis screening: No symptoms or risk factors identified. Fall Risk None identified. Assessment: 15:15 General: see triage assesment. ph 16:30 Reassessment: Patient appears in no apparent distress at this time. Patient and/or hb family updated on plan of care and expected duration. Pain level reassessed. Patient is alert, oriented x 3, equal unlabored respirations, skin warm/dry/pink. 17:30 Reassessment: Patient appears in no apparent distress at this time. Patient and/or hb family updated on plan of care and expected duration. Pain level reassessed. Patient is alert, oriented x 3, equal unlabored respirations, skin warm/dry/pink. 18:01 Reassessment: Patient appears in no apparent distress at this time. Patient and/or hb family updated on plan of care and expected duration. Pain level reassessed. Patient is alert, oriented x 3, equal unlabored respirations, skin warm/dry/pink. 18:18 Reassessment: Patient appears in no apparent distress at this time. Patient and/or ph family updated on plan of care and expected duration. Pain level reassessed. Patient is alert, oriented x 3, equal unlabored respirations, skin warm/dry/pink. Pt requesting to be d/c, informed ERP who intends to recheck cardiac enzymes at 1900, pt states that he is feeling better and does not want repeat blood work, pt to leave AMA, form signed Patient denies pain at this time. Patient states feeling better. Vital Signs: 15:05 BP 143 / 97; Pulse 101; Resp 18; Temp 98.5; Pulse Ox 97% on R/A; Weight 104.33 kg; ph Height 5 ft. 8 in. (172.72 cm); 16:45 BP 129 / 88; Pulse 96; Resp 17; Pulse Ox 99% on R/A; hb 17:04 BP 122 / 87; Pulse 85; Resp 18; Pulse Ox 99% on R/A; ph 18:01 BP 126 / 95; Pulse 100; Resp 17; Pulse Ox 99% on R/A; hb 15:05 Body Mass Index 34.97 (104.33 kg, 172.72 cm) ph ED Course: 14:54 Patient arrived in ED. ds1 14:55 Curtis Lebron PA is PHCP. cp 14:55 Curtis Haque MD is Attending Physician. cp 14:55 Edmond Faust NP is PHCP. pm1 14:56 Rani Kee, LUANA is Primary Nurse. ph 15:08 Triage completed. ph 15:09 Arm band placed on Patient placed in an exam room, on a stretcher, on media monitor, ph on pulse oximetry. 15:10 Patient has correct armband on for positive identification. Bed in low position. Call ph light in reach. Side rails up X 1. youth nutritional monitor on. Pulse ox on. NIBP on. Door closed. Noise minimized. 15:12 Inserted saline lock: 20 gauge in right antecubital area, using aseptic technique. hb Blood collected. Patient maintains SpO2 saturation greater than 95% on room air. 16:13 XRAY Chest (1 view) In Process Unspecified. EDMS 18:19 No provider procedures requiring assistance completed. IV discontinued, intact, ph bleeding controlled, No redness/swelling at site. Pressure dressing applied. Administered Medications: 15:30 Drug: Aspirin Chewable Tablet 324 mg Route: PO; ph 17:43 Follow up: Response: No adverse reaction ph 15:30 Drug: NS 0.9% 500 ml Route: IV; Rate: bolus; Site: right antecubital; ph 17:43 Follow up: Response: No adverse reaction; IV Status: Completed infusion; IV Intake: ph 500ml 17:44 Not Given (Pt denies chest pain, BP WNL): Nitroglycerin 0.4 mg Sublingual once ph Intake: 17:43 IV: 500ml; Total: 500ml. ph Outcome: 18:20 AMA AMA form signed ph 18:20 Condition: stable 18:36 Patient left the ED. ph Signatures: Dispatcher [employer] EDWI Kassy Acevedo ds1 Rani Kee, RN RN ph Curtis Lebron, TONY PA cp Edmond Faust, TIMEKEEPING SUPERVISOR TIMEKEEPING SUPERVISOR pm1 Parvin Lundberg, LUANA RN hb
[2020-12-21 18:38] LABS: Barbiturates NEGATIVE (NEGATIVE); Benzodiazepines NEGATIVE (NEGATIVE); Cocaine NEGATIVE (NEGATIVE); METHAMPHETAM NEGATIVE (NEGATIVE); Methadone NEGATIVE (NEGATIVE); Opiates NEGATIVE (NEGATIVE); Phencyclidine NEGATIVE (NEGATIVE); THC Cannibis POSITIVE (NEGATIVE)
[2020-12-21 19:22] VITALS: TEMP 98.5
[2020-12-21 19:23] VITALS: O2SAT 99
[2020-12-21 19:26] VITALS: BP 126/95
--- NOTE | 2020-12-23 17:13 | EKG ---
Test Date: 2020-12-21 Test Time: 14:59:46 Production Line Mechanic: SHEILA MEASUREMENT RESULTS: Intervals: Rate: 110 CT: 138 QRSD: 84 QT: 314 QTc: 424 [place]: P: 68 CT: 138 QRS: -34 T: 58 INTERPRETIVE STATEMENTS: Sinus tachycardia Left axis deviation Cannot rule out Inferior infarct, age undetermined Abnormal ECG Compared to ECG 04/30/2020 17:08:24 Myocardial infarct finding now present Sinus rhythm no longer present Electronically Signed On 12-23-20 17:06:48 FUNERAL LOCATION MANAGER by Max Hough
== END 2020-12-21 18:36 | disposition left against medical advice (07) ==
LOC: ER 14:52
DX: I11.9 Hypertensive heart disease without heart failure (principal); I10 Essential (primary) hypertension; F17.210 Nicotine dependence, cigarettes, uncomplicated
CPT/HCPCS: 36415; 71045; 80048; 80076; 80307; 81003; 83735; 83880; 84484; 85025; 85610; 93005; 96360; 96361; 99285

== ENCOUNTER 2021-03-10 11:11 | Emergency (ER) | payer SELFPAY ==
--- NOTE | 2021-03-10 12:42 | RAD REPORT ---
EXAM DESCRIPTION: RAD - Chest Pa And Lat (2 Views) - 03/10/2021 12:32 pm CLINICAL HISTORY: CHEST PAIN Chest pain. COMPARISON: Chest Single View dated 12/21/2020; Chest Single View dated 04/30/2020; Chest Single View d ated 12/31/2019; Chest Single View dated 01/14/2017 FINDINGS: The lungs are clear. The heart is normal in size. No displaced fractures. IMPRESSION: No acute or concerning finding suspected.
[2021-03-10 13:04] LABS: Absolute Lymphocytes (CBC) 1.2 K/uL (0.7-4.9); Basophils % 0.8 % (0-1.3); Hematocrit 45.7 % (39.6-49.0); Lymphocytes % 13.8 % (15.3-44.8); MPV 8.1 fL (7.6-11.3); RBC Red Blood Cell Count 4.82 M/uL (4.33-5.43)
[2021-03-10 13:24] LABS: ALT/SGPT 26 U/L (12-78); AST/SGOT 23 U/L (15-37); Albumin 4.6 g/dL (3.4-5.0); Alkaline Phosphatase 86 U/L (45-117); BUN Blood Urea Nitrogen 12 mg/dL (7-18); Bicarbonate 27 mmol/L (21-32); Bilirubin Direct 0.1 mg/dL (0-0.2); Bilirubin Total 0.5 mg/dL (0.2-1.0); Glucose Level 108 mg/dL (74-106); Magnesium 2.3 mg/dL (1.8-2.4); NT PRO-BNP 6 pg/mL (<125); Potassium 4.2 mmol/L (3.5-5.1); Sodium Level 138 mmol/L (136-145); Troponin (Emerg Dept Use Only) < 0.02 ng/mL (0.0-0.045)
[2021-03-10 13:28] LABS: Protime INR 0.94
[2021-03-10] MEDS ORDERED: ASPIRIN 81 MG CHEWABLE TABLET ONE (14:04)
--- NOTE | 2021-03-10 14:54 | ER ---
Nurse's Notes [facility] Name: Evaristo Altman Age: 40 yrs Sex: Male : 1980 Arrival Date: 03/10/2021 Time: 11:13 Bed 2 Private MD: Diagnosis: Chest pain, unspecified Presentation: 03/10 11:21 Chief complaint: Patient states: chest pain x 2 days, radiates to the L arm and L side ca1 of back. Wakes up in the middle of the night gasping for air. Coronavirus screen: Client denies travel out of the [place] in the last 14 days. difficulty breathing, Client presents with at least one sign or symptom that may indicate coronavirus-19. Standard/surgical mask placed on the client. Provider contacted for isolation considerations. Ebola Screen: Patient negative for fever greater than or equal to 101.5 degrees Fahrenheit, and additional compatible Ebola Virus Disease symptoms Patient denies exposure to infectious person. Patient denies travel to an Ebola-affected area in the 21 days before illness onset. No symptoms or risks identified at this time. Initial Sepsis Screen: Does the patient meet any 2 criteria? No. Patient's initial sepsis screen is negative. Does the patient have a suspected source of infection? No. Patient's initial sepsis screen is negative. Risk Assessment: Do you want to hurt yourself or someone else? Patient reports no desire to harm self or others. Onset of symptoms was March 10, 2021. 11:21 Method Of Arrival: Ambulatory ca1 11:21 Acuity: SHA 2 ca1 Historical: - Allergies: 11:24 No Known Allergies; ca1 - PMHx: 11:24 Anxiety; Depression; Hypertension; PTSD; ca1 - PSHx: 11:24 None; ca1 - Immunization history:: Client reports having NOT received the Covid vaccine. Flu vaccine is not up to date. - Social history:: Smoking status: Patient denies any tobacco usage or history of. Screenin:00 Abuse screen: Denies threats or abuse. Denies injuries from another. Nutritional jl7 screening: No deficits noted. Tuberculosis screening: No symptoms or risk factors identified. Fall Risk IV access (20 points). Total Chinchilla Fall Scale indicates No Risk (0-24 pts). Assessment: 13:00 General: Appears in no apparent distress. uncomfortable, Behavior is cooperative, jl7 anxious. Pain: Complains of pain in anterior aspect of left upper chest Pain radiates to left axilla Pain currently is 4 out of 10 on a pain scale. at worst was 6 out of 10 on a pain scale. Quality of pain is described as squeezing, Pain began gradually, Is intermittent. Neuro: Level of Consciousness is awake, alert, obeys commands, Oriented to person, place, time, situation. Cardiovascular: Heart tones present Patient's skin is warm and dry. Respiratory: Reports shortness of breath at rest Airway is patent Respiratory effort is even, unlabored, Respiratory pattern is regular, symmetrical. Derm: Skin is pink, warm \T\ dry. 14:27 Reassessment: Patient appears in no apparent distress at this time. No changes from jl7 previously documented assessment. Patient and/or family updated on plan of care and expected duration. Pain level reassessed. Patient is alert, oriented x 3, equal unlabored respirations, skin warm/dry/pink. Vital Signs: 11:21 BP 152 / 103; Pulse 102; Resp 18 S; Temp 98.3(TE); Pulse Ox 100% on R/A; Weight 104.33 ca1 kg (R); Height 5 ft. 9 in. (175.26 cm) (R); Pain 6/10; 13:00 BP 134 / 96; Pulse 94; Resp 15; Pulse Ox 98% ; Pain 4/10; jl7 14:26 BP 130 / 94; Pulse 89; Resp 15; Pulse Ox 96% ; jl7 15:40 BP 117 / 85; Pulse 84; Resp 20; Pulse Ox 98% on R/A; kg 11:21 Body Mass Index 33.96 (104.33 kg, 175.26 cm) ca1 ED Course: 11:13 Patient arrived in ED. mr 11:23 Triage completed. ca1 11:24 Arm band placed on. EKG completed in triage. Results shown to MD. ca1 12:16 Inna Schwartz FNP-C is PHCP. kb 12:16 Jose Zhao MD is Attending Physician. kb 12:26 X-ray completed. Patient tolerated procedure well. Patient moved to radiology via mh1 stretcher. Patient moved back from radiology. 12:27 Chest Pa And Lat (2 Views) XRAY In Process Unspecified. EDMS 12:49 Cuevas, Jahala, RN is Primary Nurse. jl7 13:00 Patient has correct armband on for positive identification. Placed in gown. Bed in low jl7 position. Call light in reach. Side rails up X 1. wallpaper installer on. Pulse ox on. NIBP on. 13:00 Initial lab(s) drawn, by me, sent to lab. Inserted saline lock: 20 gauge in right jl7 antecubital area, using aseptic technique. Blood collected. Patient maintains SpO2 saturation greater than 95% on room air. 14:27 Repeat lab(s) drawn. by me, sent to lab. jl7 15:55 No provider procedures requiring assistance completed. IV discontinued, intact, kg bleeding controlled, No redness/swelling at site. Pressure dressing applied. Administered Medications: 13:48 Drug: Aspirin Chewable Tablet 324 mg Route: PO; jl7 14:26 Follow up: Response: No adverse reaction jl7 Outcome: 14:53 Discharge ordered by . kb 15:55 Discharged to home ambulatory. kg 15:55 Condition: improved 15:55 Discharge instructions given to patient, Instructed on discharge instructions, Demonstrated understanding of instructions, follow-up care. 15:56 Patient left the ED. kg Signatures: Dispatcher [employer] EDMS Inna Schwartz, SABI WAITER/WAITRESS HEAD-Radha Smith mr August Makenna [facility] Celia Cuevas, LUANA CRAFT jl7 Oanh Arrington RN RN ca1 Susana Page kg
--- NOTE | 2021-03-10 14:55 | EDPHYS ---
Physician Documentation [facility] Name: Evaristo Altman Age: 40 yrs Sex: Male : 1980 Arrival Date: 03/10/2021 Time: 11:13 Bed 2 Private MD: ED Physician Jose Zhao HPI: 03/10 18:15 This 40 yrs old Male presents to ER via Ambulatory with complaints of Chest kb Pain. 18:15 The patient has shortness of breath that woke him/her from sleep. The patient has not kb experienced similar symptoms in the past. The patient has not recently seen a physician. 18:16 Onset: The symptoms/episode began/occurred 2 day(s) ago. Duration: The symptoms are kb intermittent. The patient's shortness of breath is aggravated by going to sleep. Associated signs and symptoms: Pertinent positives: chest pain. Severity of symptoms: At their worst the symptoms were moderate in the emergency department the symptoms have improved. Pt reports he has been waking up gasping for air every time he goes to sleep for the last 2 days. States he has had chest pressure since the first time it happened. Attests to snoring when he sleeps, but has never had a sleep study. . Historical: - Allergies: 11:24 No Known Allergies; ca1 - PMHx: 11:24 Anxiety; Depression; Hypertension; PTSD; ca1 - PSHx: 11:24 None; ca1 - Immunization history:: Client reports having NOT received the Covid vaccine. Flu vaccine is not up to date. - Social history:: Smoking status: Patient denies any tobacco usage or history of. ROS: 18:15 Constitutional: Negative for fever, chills, and weight loss. kb 18:15 Cardiovascular: Positive for chest pain, Negative for edema, orthopnea, palpitations, paroxysmal nocturnal dyspnea. 18:15 Respiratory: Positive for shortness of breath. 18:15 All other systems are negative. Exam: 14:35 Constitutional: This is a well developed, well nourished patient who is awake, alert, kb and in no acute distress. Head/Face: Normocephalic, atraumatic. ENT: Moist Mucous membranes Cardiovascular: Regular rate and rhythm with a normal S1 and S2. No gallops, murmurs, or rubs. No pulse deficits. Respiratory: Respirations even and unlabored. No increased work of breathing, no retractions or nasal flaring. Abdomen/GI: Soft, non-tender. No distention Skin: Warm, dry with normal turgor. Normal color. MS/ Extremity: Pulses equal, no cyanosis. Neurovascular intact. Full, normal range of motion. Neuro: Awake and alert, GCS 15, oriented to person, place, time, and situation. Moves all extremities. Normal gait. Psych: Awake, alert, with orientation to person, place and time. Behavior, mood, and affect are within normal limits. 14:35 ECG was reviewed by the Attending Physician. Vital Signs: 11:21 BP 152 / 103; Pulse 102; Resp 18 S; Temp 98.3(TE); Pulse Ox 100% on R/A; Weight 104.33 ca1 kg (R); Height 5 ft. 9 in. (175.26 cm) (R); Pain 6/10; 13:00 BP 134 / 96; Pulse 94; Resp 15; Pulse Ox 98% ; Pain 4/10; jl7 14:26 BP 130 / 94; Pulse 89; Resp 15; Pulse Ox 96% ; jl7 15:40 BP 117 / 85; Pulse 84; Resp 20; Pulse Ox 98% on R/A; kg 11:21 Body Mass Index 33.96 (104.33 kg, 175.26 cm) ca1 MDM: 12:16 Patient medically screened. 18:14 Data reviewed: vital signs, nurses notes. Data interpreted: Pulse oximetry: on room air kb is 98 %. Interpretation: normal. Counseling: I had a detailed discussion with the patient and/or guardian regarding: the historical points, exam findings, and any diagnostic results supporting the discharge/admit diagnosis, lab results, radiology results, the need for outpatient follow up, a family practitioner, to return to the emergency department if symptoms worsen or persist or if there are any questions or concerns that arise at home. 18:14 Data reviewed: I have discussed the patient's presentation/case with the attending Emergency Department Physician;. 18:17 ED course: Pt educated to follow up with PCP for possible sleep study. . kb 03/10 12:17 Order name: Basic Metabolic Panel; Complete Time: 13:25 kb 03/10 12:17 Order name: CBC with Diff; Complete Time: 13:07 kb 05/17 12:17 Order name: LFT's; Complete Time: 13:25 kb 03/10 12:17 Order name: Magnesium; Complete Time: 13:25 kb 03/10 12:17 Order name: NT PRO-BNP; Complete Time: 13:25 kb 03/10 12:17 Order name: PT-INR; Complete Time: 13:38 kb 03/10 11:24 Order name: EKG; Complete Time: 11:25 ca1 03/10 11:24 Order name: EKG - Nurse/Tech; Complete Time: 11:25 ca1 03/10 12:03 Order name: Chest Pa And Lat (2 Views) XRAY; Complete Time: 12:44 kb 03/10 12:17 Order name: Troponin (emerg Dept Use Only); Complete Time: 13:25 kb 03/10 12:17 Order name: Cardiac monitoring; Complete Time: 13:00 kb 03/10 13:56 Order name: EKG; Complete Time: 13:56 kb 03/10 13:56 Order name: Troponin (emerg Dept Use Only); Complete Time: 14:52 kb 03/10 12:17 Order name: IV Saline Lock; Complete Time: 13:00 kb 03/10 12:17 Order name: Labs collected and sent; Complete Time: 13:00 kb 03/10 12:17 Order name: O2 Per Protocol; Complete Time: 13:00 kb 03/10 12:17 Order name: O2 Sat Monitoring; Complete Time: 13:00 kb 03/10 13:56 Order name: EKG - Nurse/Tech; Complete Time: 14:26 kb EC:35 Rate is 87 beats/min. Rhythm is regular. QRS [place] is Normal. IN interval is normal at kb 154 msec. QRS interval is normal at 90 msec. QT interval is normal at 368 msec. Administered Medications: 13:48 Drug: Aspirin Chewable Tablet 324 mg Route: PO; jl7 14:26 Follow up: Response: No adverse reaction jl7 Disposition: 18:21 Co-signature as Attending Physician, Jose Zhao MD. ma2 Disposition: 03/10/21 14:53 Discharged to Home. Impression: Chest pain, unspecified. - Condition is Stable. - Discharge Instructions: Nonspecific Chest Pain, [id number]. - Medication Reconciliation Form, Thank You Letter, Antibiotic Education, Prescription Opioid Use form. - Follow up: Emergency Department; When: As needed; Reason: Worsening of condition. Follow up: Private Physician; When: 2 - 3 days; Reason: Recheck today's complaints, Continuance of care, Re-evaluation by your physician. Signatures: Dispatcher [employer] EDMS Efren Inna, KHADIJAH-C LITIGATION SERVICES MANAGER-Celia Xavier RN RN jl7 Jose Zhao MD MD ma2 Oanh Arrington RN RN ca1 Susana Page kg Corrections: (The following items were deleted from the chart) 15:56 14:53 03/10/2021 14:53 Discharged to Home. Impression: Chest pain, unspecified. kg Condition is Stable. Forms are Medication Reconciliation Form, Thank You Letter, Antibiotic Education, Prescription Opioid Use. Follow up: Emergency Department; When: As needed; Reason: Worsening of condition. Follow up: Private Physician; When: 2 - 3 days; Reason: Recheck today's complaints, Continuance of care, Re-evaluation by your physician. kb
[2021-03-10 16:46] VITALS: TEMP 98.3
[2021-03-10 16:51] VITALS: BP 117/85; O2SAT 98
--- NOTE | 2021-03-11 11:41 | EKG ---
Test Date: 2021-03-10 Test Time: 14:20:54 Technical Instructor: CASH MEASUREMENT RESULTS: Intervals: Rate: 87 [place]: 154 QRSD: 90 QT: 368 QTc: 442 [place]: P: 65 [place]: 154 QRS: 31 T: 42 INTERPRETIVE STATEMENTS: Normal sinus rhythm Normal ECG Compared to ECG 12/21/2020 14:59:46 Sinus tachycardia no longer present Left-axis deviation no longer present Myocardial infarct finding no longer present Electronically Signed On 03-11-21 11:39:31 CDT by Max Hough
--- NOTE | 2021-03-11 11:42 | EKG ---
Test Date: 2021-03-10 Test Time: 11:27:32 Lan Analyst: GENNA MEASUREMENT RESULTS: Intervals: Rate: 96 [place]: 146 QRSD: 86 QT: 354 QTc: 447 [place]: P: 72 [place]: 146 QRS: 65 T: 42 INTERPRETIVE STATEMENTS: Normal sinus rhythm Normal ECG Compared to ECG 12/21/2020 14:59:46 Sinus tachycardia no longer present Left-axis deviation no longer present Myocardial infarct finding no longer present Electronically Signed On 03-11-21 11:39:36 CDT by Max Hough
== END 2021-03-10 15:56 | disposition home or self-care (01) ==
LOC: ER 11:11
DX: R07.9 Chest pain, unspecified (principal); F41.9 Anxiety disorder, unspecified; F32.9 Major depressive disorder, single episode, unspecified; I10 Essential (primary) hypertension; F43.10 Post-traumatic stress disorder, unspecified
CPT/HCPCS: 36415; 71046; 80048; 80076; 83735; 83880; 84484; 85025; 85610; 93005; 99285

== ENCOUNTER 2021-06-25 14:28 | Emergency (ER) | payer SELFPAY ==
[2021-06-25 15:08] LABS: Absolute Lymphocytes (CBC) 2.9 K/uL (0.7-4.9); Basophils % 0.3 % (0-1.3); Hematocrit 42.4 % (39.6-49.0); Lymphocytes % 19.3 % (15.3-44.8); MPV 7.7 fL (7.6-11.3); RBC Red Blood Cell Count 4.68 M/uL (4.33-5.43)
[2021-06-25 15:18] LABS: Protime INR 1.03
[2021-06-25 15:27] LABS: ALT/SGPT 24 U/L (12-78); AST/SGOT 14 U/L (15-37); Alkaline Phosphatase 74 U/L (45-117); BUN Blood Urea Nitrogen 8 mg/dL (7-18); Bicarbonate 28 mmol/L (21-32); Bilirubin Direct 0.1 mg/dL (0-0.2); Bilirubin Total 0.7 mg/dL (0.2-1.0); Glucose Level 124 mg/dL (74-106); Magnesium 1.9 mg/dL (1.8-2.4); NT PRO-BNP 23 pg/mL (<125); Potassium 3.2 mmol/L (3.5-5.1); Protein, Total 8.7 g/dL (6.4-8.2); Sodium Level 137 mmol/L (136-145); Troponin (Emerg Dept Use Only) < 0.02 ng/mL (0.0-0.045)
--- NOTE | 2021-06-25 15:27 | RAD REPORT ---
EXAM DESCRIPTION: RAD - Chest Single View - 06/25/2021 3:11 pm CLINICAL HISTORY: CHEST PAIN COMPARISON: Two view chest March 10 TECHNIQUE: AP portable chest image was obtained 06/25/2021 3:11 pm . FINDINGS: Lungs are clear. Heart and vasculature are normal. No measurable pleural effusion and no p neumothorax. No acute bony abnormality seen. No acute aortic findings suspected. IMPRESSION: No acute cardiopulmonary process. No significant change from comparison study.
--- NOTE | 2021-06-25 16:42 | ER ---
Nurse's Notes [facility] Name: Evaristo Altman Age: 40 yrs Sex: Male : 1980 Arrival Date: 06/25/2021 Time: 14:28 Bed 3 Private MD: Diagnosis: Chest pain, unspecified Presentation: 06/25 14:44 Chief complaint: Patient states: Smoked some coke last night, woke this morning with jl7 intermittent chest pain, feels like pressure/tightening. Coronavirus screen: At this time, the client does not indicate any symptoms associated with coronavirus-19. Ebola Screen: No symptoms or risks identified at this time. Initial Sepsis Screen: Does the patient meet any 2 criteria? No. Patient's initial sepsis screen is negative. Does the patient have a suspected source of infection? No. Patient's initial sepsis screen is negative. Risk Assessment: Do you want to hurt yourself or someone else? Patient reports no desire to harm self or others. Onset of symptoms was June 25, 2021 at 06:00. 14:44 Method Of Arrival: Ambulatory [facility] 14:44 Acuity: SHA 2 jl7 Historical: - Allergies: 14:47 No Known Allergies; jl7 - PMHx: 14:47 Anxiety; Depression; Hypertension; PTSD; jl7 - Immunization history:: Adult Immunizations not up to date, Client reports having NOT received the Covid vaccine. - Social history:: Smoking status: Patient denies any tobacco usage or history of. - Family history:: not pertinent. - Hospitalizations: : No recent hospitalization is reported. Screenin:36 Abuse screen: Denies threats or abuse. Denies injuries from another. Nutritional hb screening: No deficits noted. Tuberculosis screening: No symptoms or risk factors identified. Fall Risk None identified. Assessment: 15:00 General: Appears in no apparent distress. Behavior is calm, cooperative. Pain: Pain hb currently is 9 out of 10 on a pain scale. Neuro: Level of Consciousness is awake, alert, obeys commands, Oriented to person, place, time, situation. Cardiovascular: Reports chest pain, Patient's skin is warm and dry. Respiratory: Respiratory effort is even, unlabored, Respiratory pattern is regular, symmetrical. GI: No signs and/or symptoms were reported involving the gastrointestinal system. : No signs and/or symptoms were reported regarding the genitourinary system. EENT: No signs and/or symptoms were reported regarding the EENT system. Derm: Skin is pink, warm \T\ dry. Musculoskeletal: No signs and/or symptoms reported regarding the musculoskeletal system. 16:23 Reassessment: Patient appears in no apparent distress at this time. Patient and/or hb family updated on plan of care and expected duration. Pain level reassessed. Patient is alert, oriented x 3, equal unlabored respirations, skin warm/dry/pink. Vital Signs: 14:44 BP 154 / 95; Pulse 92; Resp 15; Temp 97.9; Pulse Ox 100% on R/A; Pain 9/10; jl7 15:00 BP 130 / 97; Pulse 85; Resp 17; Pulse Ox 98% on R/A; hb 16:23 BP 136 / 93; Pulse 91; Resp 18; Pulse Ox 99% on R/A; hb 16:53 BP 139 / 97; Pulse 89; Resp 15; Pulse Ox 98% ; jl7 ED Course: 14:28 Patient arrived in ED. ds1 14:42 Celia Cuevas, RN is Primary Nurse. jl7 14:44 Nicolas Bowman MD is Attending Physician. rn 14:47 Triage completed. jl7 14:55 Inserted saline lock: 20 gauge in right antecubital area, using aseptic technique. hb Blood collected. 15:11 XRAY Chest (1 view) In Process Unspecified. EDMS 15:36 Arm band placed on. hb 15:36 Patient has correct armband on for positive identification. Bed in low position. Call hb light in reach. court recording monitor on. Pulse ox on. NIBP on. 15:39 Patient maintains SpO2 saturation greater than 95% on room air. hb 16:25 LFT's Sent. jl7 16:25 Basic Metabolic Panel Sent. jl7 16:53 No provider procedures requiring assistance completed. IV discontinued, intact, jl7 bleeding controlled, No redness/swelling at site. Pressure dressing applied. Administered Medications: No medications were administered Outcome: 16:42 Discharge ordered by MD. rn 16:53 Discharged to home ambulatory. jl7 16:53 Condition: stable 16:53 Discharge instructions given to patient, Instructed on discharge instructions, follow up and referral plans. Demonstrated understanding of instructions, follow-up care. 16:55 Patient left the ED. jl7 Signatures: Dispatcher [employer] JANETT Acevedo, Kassy ds1 Nicolas Bowman MD MD rn Baxter, Heather, RN RN hb Leal, Jahala, RN RN jl7
--- NOTE | 2021-06-25 16:42 | EDPHYS ---
Physician Documentation [facility] Name: Evaristo Altman Age: 40 yrs Sex: Male : 1980 Arrival Date: 06/25/2021 Time: 14:28 Bed 3 Private MD: ED Physician Nicolas Bowman HPI: 06/25 15:03 This 40 yrs old Male presents to ER via Ambulatory with complaints of High rn Blood Pressure, Chest Pain. 15:03 This 40 yrs old Male presents to ER via Ambulatory with complaints of High rn Blood Pressure, Chest Pain. 15:03 The patient has elevated blood pressure and discovered this at home. Onset: The rn symptoms/episode began/occurred this morning. Modifying factors: The symptoms are aggravated by Using cocaine, The symptoms are alleviated by prescription meds. Associated signs and symptoms: Pertinent positives: chest pain, dizziness, Pertinent negatives: headache, visual changes, vomiting, weakness. Severity of symptoms: At its worst the blood pressure was moderate, in the emergency department the blood pressure is unchanged. The patient has experienced similar episodes in the past. The patient has not recently seen a physician. Patient reports was a recovering addict, decided to use cocaine yesterday, does not recall events, woke up this morning with chest pain and dizziness. Mother gave him lisinopril but reports blood pressure still elevated. No syncope. No focal neurological deficit. Patient here several times in the past for chest pain after using stimulants.. Historical: - Allergies: 14:47 No Known Allergies; jl7 - PMHx: 14:47 Anxiety; Depression; Hypertension; PTSD; jl7 - Immunization history:: Adult Immunizations not up to date, Client reports having NOT received the Covid vaccine. - Social history:: Smoking status: Patient denies any tobacco usage or history of. - Family history:: not pertinent. - Hospitalizations: : No recent hospitalization is reported. ROS: 15:03 Constitutional: Negative for fever, chills, and weight loss, Eyes: Negative for injury, rn pain, redness, and discharge, Neck: Negative for injury, pain, and swelling, Cardiovascular: Negative for palpitations, and edema, Respiratory: Negative for shortness of breath, cough, wheezing, and pleuritic chest pain, Abdomen/GI: Negative for abdominal pain, nausea, vomiting, diarrhea, and constipation, Back: Negative for injury and pain, MS/Extremity: Negative for injury and deformity, Skin: Negative for injury, rash, and discoloration, Neuro: Negative for headache, numbness, tingling, and seizure. Exam: 15:03 Constitutional: This is a well developed, well nourished patient who is awake, alert, rn and in no acute distress. Head/Face: Normocephalic, atraumatic. Eyes: Periorbital areas with no swelling, redness, or edema. ENT: Mucous membranes moist. Cardiovascular: Regular rate and rhythm. No pulse deficits. Respiratory: No increased work of breathing, no retractions or nasal flaring. Abdomen/GI: Soft, non-tender Skin: Warm, dry MS/ Extremity: Pulses equal, no cyanosis. Neuro: Awake and alert, GCS 15, oriented to person, place, time, and situation. Cranial nerves II-XII grossly intact. Motor strength 5/5 in all extremities. Sensory grossly intact. 16:13 ECG was reviewed by the Attending Physician. rn Vital Signs: 14:44 BP 154 / 95; Pulse 92; Resp 15; Temp 97.9; Pulse Ox 100% on R/A; Pain 9/10; jl7 15:00 BP 130 / 97; Pulse 85; Resp 17; Pulse Ox 98% on R/A; hb 16:23 BP 136 / 93; Pulse 91; Resp 18; Pulse Ox 99% on R/A; hb 16:53 BP 139 / 97; Pulse 89; Resp 15; Pulse Ox 98% ; jl7 MDM: 14:44 Patient medically screened. rn 16:40 Differential diagnosis: Malignant HTN, Stimulant abuse, cocaine related chest pain, rn hypertension, anxiety. Data reviewed: vital signs, nurses notes, old medical records, lab test result(s), EKG, radiologic studies, and as a result, I will discharge patient. Data interpreted: ekg monitor tech: rate is 91 beats/min, rhythm is normal sinus rhythm, regular, with no ectopy, Interpretation: normal rate, normal rhythm, Pulse oximetry: on room air is 99 %. Interpretation: normal. Test interpretation: by ED physician or midlevel provider: ECG, plain radiologic studies, Chest x-ray clear of infiltrate or pneumothorax. Counseling: I had a detailed discussion with the patient and/or guardian regarding: the historical points, exam findings, and any diagnostic results supporting the discharge/admit diagnosis, lab results, radiology results, the need for outpatient follow up, to return to the emergency department if symptoms worsen or persist or if there are any questions or concerns that arise at home. Response to treatment: the patient's symptoms have mildly improved after treatment, and as a result, I will discharge patient. Special discussion: Based on the patient's history, exam, and Dx evaluation, there is no indication for emergent intervention or inpatient Tx. It is understood by the patient/guardian that if the Sx's persist or worsen they need to return immediately for re-evaluation. I discussed with the patient/guardian in detail that at this point there is no indication for admission to the hospital. It is understood, however, that if the symptoms persist or worsen the patient needs to return immediately for re-evaluation. ED course: No acute findings in blood/EKG/chest x-ray. Will DC home with instructions to stop stimulant abuse.. 16:42 Counseling: I had a detailed discussion with the patient and/or guardian regarding: the rn presence of at least one elevated blood pressure reading (>120/80) during this emergency department visit. Special discussion: I have referred the patient to see his PCP for further evaluation of high blood pressure. 06/25 14:44 Order name: Basic Metabolic Panel [facility] 06/25 14:44 Order name: CBC with Diff; Complete Time: 15:31 06/25 14:44 Order name: LFT's 06/25 14:44 Order name: Magnesium; Complete Time: 15:31 06/25 14:44 Order name: NT PRO-BNP; Complete Time: 15:31 06/25 14:44 Order name: PT-INR; Complete Time: 15:31 06/25 14:44 Order name: Troponin (emerg Dept Use Only); Complete Time: 15:31 06/25 14:44 Order name: XRAY Chest (1 view); Complete Time: 15:31 06/25 14:44 Order name: EKG; Complete Time: 14:45 06/25 14:44 Order name: Cardiac monitoring; Complete Time: 14:59 06/25 14:44 Order name: EKG - Nurse/Tech; Complete Time: 14:59 06/25 14:44 Order name: IV Saline Lock; Complete Time: 14:59 [facility] 06/25 14:44 Order name: Basic Metabolic Panel; Complete Time: 15:31 [facility] 06/25 14:45 Order name: Liver (Hepatic) Function; Complete Time: 15:31 [facility] 06/25 14:44 Order name: Labs collected and sent; Complete Time: 14:59 [facility] 06/25 14:44 Order name: O2 Per Protocol; Complete Time: 14:59 [facility] 06/25 14:44 Order name: O2 Sat Monitoring; Complete Time: 14:59 [facility] EC:13 Rate is 89 beats/min. Rhythm is regular. Left axis deviation noted. QRS is positive in rn lead I and negative in lead aVF. TN interval is normal. QRS interval is normal. QT interval is normal. No Q waves. T waves are Normal. No ST changes noted. Clinical impression: NSR w/ Non-specific ST/T Changes and LAD. Interpreted by me. Reviewed by me. Administered Medications: No medications were administered Disposition Summary: 06/25/21 16:42 Discharge Ordered Location: Home rn Problem: new rn Symptoms: have improved rn Condition: Stable rn Diagnosis - Chest pain, unspecified rn Followup: rn - With: Private Physician - When: As needed - Reason: Recheck today's complaints, Re-evaluation by your physician Discharge Instructions: - Discharge Summary Sheet rn - Nonspecific Chest Pain, Adult rn - Cocaine Use Disorder rn - Hypertension, Adult rn Forms: - Medication Reconciliation Form rn - Thank You Letter rn - Antibiotic internet sales consultant - Prescription Opioid Use rn Signatures: Dispatcher [employer] Nicolas Chang MD MD rn Leal, Jahala, RN RN jl7
[2021-06-25 17:21] VITALS: TEMP 97.9
[2021-06-25 17:25] VITALS: BP 139/97; O2SAT 98
== END 2021-06-25 16:55 | disposition home or self-care (01) ==
LOC: ER 14:28
DX: R07.9 Chest pain, unspecified (principal); I10 Essential (primary) hypertension
CPT/HCPCS: 36415; 71045; 80048; 80076; 83735; 83880; 84484; 85025; 85610; 93005; 99285